=== PATIENT | male | born 1970 | race Caucasian/White ===

== ENCOUNTER 2020-11-22 16:26 | Outpatient (REF) | payer OTHER, SELFPAY | END 2020-11-22 16:27 | disposition home or self-care (01) | LOC: HO.SCI 16:26 | DX: Z13.89 Encounter for screening for other disorder (principal) ==

== ENCOUNTER 2020-11-24 14:44 | Outpatient (REF) | payer OTHER, SELFPAY ==
--- NOTE | ~2020-11-24 | MR_ITS ---
EXAMINATION: MR KNEE WITHOUT CONTRAST, LEFT CLINICAL INFORMATION: Evaluate for medial meniscal tear. COMPARISON: Left knee pain. Running injury. TECHNIQUE: MRI of the knee without contrast was performed using routine sequences on a high-field scanner. FINDINGS: MENISCI: Medial Meniscus: Free-edge fraying is present at the medial meniscal body. No tears. Lateral Meniscus: Intact. LIGAMENTS: Cruciate: Intact. Collateral: Intact. EXTENSOR MECHANISM: Enthesopathic spurring is present at the quadriceps tendon insertion on the patella. Quadriceps and patellar tendons are normal. ARTICULAR CARTILAGE/BONE: Patellofemoral Compartment: There is a 2.5 x 2.5 cm area of moderate to high-grade articular cartilage loss at the lateral patellar facet which is more pronounced inferiorly and associated with underlying articular cortical irregularity, subchondral edema, and subchondral cystic change. Additional high-grade cartilage loss is present at the superolateral aspect of the lateral trochlear facet with underlying marrow edema. There is more mild surrounding nonuniform chondral thinning in the lateral trochlear facet with a full-thickness chondral fissure in the inferior aspect of the central trochlear groove and mild chondral fissuring at the medial trochlear facet. Trochlear morphology is normal. TT-TG distance measures 0.8 cm. Medial Compartment: There are small marginal osteophytes in the medial compartment. Chondral fissuring is present at the medial femoral condyle and medial tibial plateau. Lateral Compartment: Small marginal osteophytes. There is mild chondral thinning at the medial aspect of the lateral tibial plateau along the lateral tibial spine with degenerative signal in the articular cartilage more lateral to this. Additional mild chondral thinning is present at the posterior margin of the lateral tibial plateau. JOINT FLUID AND BURSAE: Small joint effusion. No Reina's cyst. MR/MR knee LT wo con IMPRESSION: 1. Free-edge fraying at the medial meniscal body without a discrete meniscal tear. 2. 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 3. Minimal medial and lateral compartment osteoarthritis. 4. Small joint effusion.
== END 2020-11-24 14:45 | disposition home or self-care (01) ==
LOC: HO.MRI 14:44
PROVIDERS: PCP Internal Medicine; Visit Provider Orthopaedic Surgery
DX: M25.562 Pain in left knee (principal)
CPT/HCPCS: 73721